=== PATIENT | male | born 1940 | race Caucasian/White ===

== ENCOUNTER → 2016-05-14 | Day surgery (SDC) | payer MEDICARE, OTHER ==
[~2016-05-14] MED LIST: ADVA500A INH; ADVAI500I PO; ALBU8I INH; ATOR10TA PO; ATOR20TA15 PO; CARV6.252 PO; DEXTROSE 5%-LACTATED RING INJ 1,000 ML IV SCH; DO NOT ADM ANY ANTICOAGULANT DRUGS XX PRN; LIDO5DIS35 TOPICAL; OMEP20TA PO; OMEP20TA39 PO; PROPOFOL 200 MG/20 ML AMP IV ONE; SODIUM CHLOR 0.9% 1000 ML INJ 1,000 ML IV SCH; SODIUM CHLORIDE 0.9% FLUSH 5 ML FLUSH IVF PRN; TAMS0.4C4 PO; VENTAER INH; XARE10TA PO; XARE20TA PO
[2016-05-14 08:33] VITALS: BP 180/88; PULSE 83; RESP 15; TEMP 98.2; O2SAT 98
--- NOTE | 2016-05-14 08:44 | PD ---
HPI Chief Complaint: GI Complaint Time Seen by Provider: 08:43 Travel History International Travel<30 days: No Contact w/Intl Traveler<30days: No Traveled to known affect area: No History of Present Illness HPI 75-year-old male came to the emergency room with history of esophageal obstruction. Patient says that he has history of esophageal stricture and has had dilation in the past. His last dilation was in 2013. Patient says he was eating a piece of chicken yesterday that he did not chew very well and since then he has been unable to swallow any fluid since it comes out. He feels like the piece is stuck in the midesophagus. He has been bringing his saliva out from time to time. Vital signs otherwise are stable. Patient is supposed to be on Xarelto for atrial fibrillation but he stopped taking it 1 week ago since he was noticing some blood in his urine. His hematuria has cleared since then. PFSH Past Medical History Narrative Medical List of his past medical history as reviewed from the nursing note. Asthma: Yes Cancer: Yes (PROSTATE) High Cholesterol: Yes Cerebrovascular Accident: Yes (tia 2 years ago) Diminished Hearing: Yes ([place] HEAR[place] AIDS) Genitourinary: Yes (BPH) Hypertension: Yes Respiratory: Yes (asthma) Past Surgical History Abdominal Surgery: Yes (HERNIA REPAIR) Eye Surgery: Yes (LASIK) Genitourinary Surgery: Yes (cryo prostate ) Other Surgery: Yes (ESOPHAGEAL STRICTURES) Social History Alcohol Use: Yes (3-4 oz day ) Tobacco Use: No Substance Use: No Allergies-Medications (Allergen,Severity, Reaction): Coded Allergies: No Known Allergies (Unverified , 05/14/16) Comments No known drug allergies. Reported Meds & Prescriptions Reported Meds & Active Scripts Active Reported Omeprazole 20 Mg Tab 20 Mg PO DAILY Ventolin Hfa 18 GM Inh (Albuterol Sulfate) 90 Mcg/Act Aer 2 Puff INH Q4H PRN Advair Diskus Inh (Fluticasone-Salmeterol Inh) 500-50 Mcg/Blist Aer 1 Puff INH BID Rinse mouth after use. Atorvastatin (Atorvastatin Calcium) 20 Mg Tab 20 Mg PO HS Xarelto (Rivaroxaban) 20 Mg Tab 20 Mg PO DAILY Tamsulosin (Tamsulosin HCl) 0.4 Mg Cap 0.4 Mg PO BID Narrative Medication List of his home medications reviewed from the nursing note. Review of Systems Except as stated in HPI: all other systems reviewed are Neg Physical Exam Narrative GENERAL: Awake, alert, elderly, anxious SKIN: Warm and dry. HEAD: Atraumatic. Normocephalic. EYES: Pupils equal and round. No scleral icterus. No injection or drainage. ENT: No nasal bleeding or discharge. Mucous membranes pink and moist. NECK: Trachea midline. No JVD. CARDIOVASCULAR: Regular rate and rhythm. No murmur appreciated. RESPIRATORY: No accessory muscle use. Bibasilar fine crackles. Breath sounds equal bilaterally. GASTROINTESTINAL: Abdomen soft, non-tender, nondistended. Hepatic and splenic margins not palpable. MUSCULOSKELETAL: No obvious deformities. No clubbing. No cyanosis. 2+ pedal edema bilaterally. NEUROLOGICAL: Awake and alert. No obvious cranial nerve deficits. Motor grossly within normal limits. Normal speech. PSYCHIATRIC: Appropriate mood and affect; insight and judgment normal. Data Data Last Documented VS Vital Signs Date Time Temp Pulse Resp B/P Pulse Ox O2 Delivery O2 Flow Rate FiO2 05/14/16 10:00 96 Room Air 05/14/16 10:00 70 18 180/88 05/14/16 08:33 98.2 Orders Electrocardiogram (05/14/16 ) Basic Metabolic Panel (Bmp) (05/14/16 08:49) B-Type Natriuretic Peptide (05/14/16 08:49) Ckmb (Isoenzyme) Profile (05/14/16 08:49) Complete Blood Count With Diff (05/14/16 08:49) Magnesium (Mg) (05/14/16 08:49) Prothrombin Time / Inr (Pt) (05/14/16 08:49) Act Partial Throm Time (Ptt) (05/14/16 08:49) Troponin I (05/14/16 08:49) Chest, Single Ap (05/14/16 08:49) Ecg Monitoring (05/14/16 08:49) Bilateral Bp Monitoring (05/14/16 08:49) Iv Access Insert/Monitor (05/14/16 08:49) Oximetry (05/14/16 08:49) Oxygen Administration (05/14/16 08:49) Sodium Chloride 0.9% Flush (Ns Flush) (05/14/16 09:00) NPO (05/14/16 08:49) Sodium Chlor 0.9% 1000 Ml Inj (Ns 1000 M (05/14/16 11:32) Admit Order (Ed Use Only) (05/14/16 10:33) Labs Laboratory Tests Test 05/14/16 09:10 White Blood Count 10.9 TH/MM3 Red Blood Count 5.29 MIL/MM3 Hemoglobin 15.9 GM/DL Hematocrit 46.9 % Mean Corpuscular Volume 88.6 FL Mean Corpuscular Hemoglobin 30.0 PG Mean Corpuscular Hemoglobin 33.8 % Concent Red Cell Distribution Width 13.1 % Platelet Count 250 TH/MM3 Mean Platelet Volume 8.4 FL Neutrophils (%) (Auto) 66.4 % Lymphocytes (%) (Auto) 20.8 % Monocytes (%) (Auto) 9.0 % Eosinophils (%) (Auto) 2.9 % Basophils (%) (Auto) 0.9 % Neutrophils # (Auto) 7.3 TH/MM3 Lymphocytes # (Auto) 2.3 TH/MM3 Monocytes # (Auto) 1.0 TH/MM3 Eosinophils # (Auto) 0.3 TH/MM3 Basophils # (Auto) 0.1 TH/MM3 CBC Comment DIFF FINAL Differential Comment Prothrombin Time 10.7 SEC Prothromb Time International 1.0 RATIO Ratio Activated Partial 24.1 SEC Thromboplast Time Sodium Level 140 MEQ/L Potassium Level 4.0 MEQ/L Chloride Level 106 MEQ/L Carbon Dioxide Level 26.7 MEQ/L Anion Gap 7 MEQ/L Blood Urea Nitrogen 13 MG/DL Creatinine 1.17 MG/DL Estimat Glomerular Filtration 61 ML/MIN Rate Random Glucose 121 MG/DL Calcium Level 8.9 MG/DL Magnesium Level 2.3 MG/DL Total Creatine Kinase 84 U/L Troponin I LESS THAN 0.02 NG/ML B-Type Natriuretic Peptide 14 PG/ML MDM Medical Decision Making Medical Screen Exam Complete: Yes Emergency Medical Condition: Yes Medical Record Reviewed: Yes Interpretation(s) Twelve-lead EKG was reviewed by me. Normal sinus rhythm, left axis deviation, peaked T waves. Heart rate of 70 bpm. Differential Diagnosis Esophageal obstruction, CHF Narrative Course 9:55 AM CBC and coags are back and looks to be within normal limit. Awaiting for the chemistry and BNP. Patient is nothing by mouth. I put a call out for the GI specialist and waiting to hear back from them. 10:[address] Adler called back and he is trying to arrange for an endoscopy for this patient. I've ordered a maintenance fluid. Patient has been kept up-to- date on the progress. Procedures EKG Prior to Arrival: No Physician Communication Physician Communication Dr. Adler Diagnosis Primary Impression: Foreign body in esophagus Qualified Code: T18.108A - Foreign body in esophagus, initial encounter Additional Impression: Esophageal stricture Admitting Information Admitting Physician Requests: Observation Devyn Thacker MD May 14, 2016 08:44
[2016-05-14 09:20] LABS: AUTOMATED NEUTROPHIL # 7.3 TH/MM3 (1.8-7.7); BASOPHIL # 0.1 TH/MM3 (0-0.2); BASOPHIL % 0.9 % (0.0-2.0); EOSINOPHIL # 0.3 TH/MM3 (0-0.4); EOSINOPHIL % 2.9 % (0.0-4.0); HEMATOCRIT 46.9 % (39.0-51.0); HEMO FLAGS DIFF FINAL; LYMPH % 20.8 % (9.0-44.0); LYMPHOCYTE # 2.3 TH/MM3 (1.0-4.8); MEAN CELL VOLUME 88.6 FL (80.0-100.0); MEAN CORPUSCULAR HGB CONC 33.8 % (32.0-36.0); NEUT % 66.4 % (16.0-70.0); PLATELET COUNT 250 TH/MM3 (150-450); RED BLOOD COUNT 5.29 MIL/MM3 (4.50-5.90); RED CELL DISTRIBUTION WIDTH 13.1 % (11.6-17.2); WHITE BLOOD COUNT 10.9 TH/MM3 (4.0-11.0)
[2016-05-14 09:31] LABS: APTT (PATIENT) 24.1 SEC (24.3-30.1); PROTHROMBIN TIME - PATIENT 10.7 SEC (9.8-11.6)
--- NOTE | 2016-05-14 09:35 | RADRPT ---
EXAM DATE/TIME: 05/14/2016 09:05 [facility] COMPARISON: No previous studies available for comparison. INDICATIONS : Cough after choking on food. MEDICAL HISTORY : Carcinoma, prostatic. SURGICAL HISTORY : None. ENCOUNTER: Initial ACUITY: 1 day PAIN SCORE: 0/10 LOCATION: Bilateral chest FINDINGS: The cardiac silhouette is enlarged in transverse diameter. The lungs are free of acute parenchymal op acity. No effusions are identified. Osseous structures are intact. CONCLUSION: Cardiomegaly. No acute cardiopulmonary disease. Waqas Todd MD on May 14, 2016 at 9:33 Board Certified Radiologist. This report was verified electronically.
[2016-05-14 09:56] LABS: ANION GAP 7 MEQ/L (5-15); BICARBONATE 26.7 MEQ/L (21.0-32.0); BLOOD UREA NITROGEN 13 MG/DL (7-18); CHLORIDE 106 MEQ/L (98-107); GLOMERULAR FILTRATION RATE 61 ML/MIN (>89); SODIUM (NA) 140 MEQ/L (136-145)
[2016-05-14 09:57] LABS: CREATINE KINASE 84 U/L (39-308); MAGNESIUM 2.3 MG/DL (1.5-2.5)
[2016-05-14 10:00] VITALS: BP 180/88; PULSE 70; RESP 18; O2SAT 96
[2016-05-14 16:00] VITALS: TEMP 98.4
--- NOTE | 2016-05-14 16:04 | PD.PROCEDR ---
GI Procedure PROCEDURE DATE: May 14, 2016 PROCEDURE PERFORMED EGD, full report to be scanned INDICATION FOR PROCEDURE Foreign body PROCEDURE: The procedure, risks and benefits were discussed with Mr. Bob and informed consent was obtained. Anesthesia sedated him with Diprivan. He was placed in the left lateral decubitus position. EGD: The Pentax videoscope was introduced through the oropharynx and advanced to the second portion of the duodenum under direct visualization. Retroflexion was performed in the stomach. FINDINGS: - food bolus impaction in distal esophagus, food bolus was pushed down with endoscope. - distal esophageal stricture noted, significant erosion and inflammation at site of food impaction - normal stomach and duodenum ESTIMATED BLOOD LOSS: minimal COMPLICATIONS: none IMPRESSION: - food bolus impaction - distal esophageal stricture PLAN: - discharge home when criteria met - soft mechanical diet - anti-reflux measures - Protonix 40mg PO daily - follow with GI in clinic, will need esophageal dilation once acute inflammation resolves Hany Hinds MD May 14, 2016 16:04
[2016-05-14 16:15] VITALS: BP 156/88; PULSE 89; RESP 14; O2SAT 94
--- NOTE | 2016-05-14 17:11 | MB ---
cc: LIZETT MAYO DATE OF CONSULTATION 05/14/16 1939 REASON FOR CONSULTATION Foreign body in esophagus. HISTORY OF PRESENT ILLNESS Mr. Bob is a pleasant 75-year-old gentleman with past medical history significant for asthma, prostate cancer, TIA, hypertension, hyperlipidemia and Yu's esophagus who presents today complaining of food stuck in his esophagus since last night. The patient has a history of food bolus impaction in the past due to esophageal stricture. The most recent one was in 2014 that required endoscopy to relieve the obstruction. He is known to Dr. Zamudio who has followed him as an outpatient. He performed barium esophagram which showed narrowing in the distal esophagus, however, the patient at that time was not having any symptoms and declined a possible esophageal dilation. He reports eating chicken last night and after that felt like things got stuck in the distal area of the esophagus having issues handling his secretions and spitting a lot of saliva. He denies any significant shortness of breath. No significant chest pain associated with it. He is on chronic anticoagulation, but has not taken it for the last week. He uses Xarelto. GI has been consulted for evaluation of foreign body in the esophagus. PAST MEDICAL HISTORY 1. Asthma, 2. Prostate cancer, 3. Hypercholesterolemia, 4. Hypertension, 5. History of cerebrovascular accident two years ago. 6. Yu's esophagus. 7. Esophageal stricture. PAST SURGICAL HISTORY 1. Hernia repair 2. LASIK eye surgery 3. Cryo prostate surgery. SOCIAL HISTORY Uses alcohol on occasion, denies tobacco or drug use. ALLERGIES NO KNOWN DRUG ALLERGIES. MEDICATIONS At home 1. Omeprazole 20 mg p.o. daily. 2. Atorvastatin 10 mg p.o. daily 3. Ventolin 4. Advair discus 5. Carvedilol 6.25 p.o. daily. 6. Tamsulosin 0.4 mg p.o. daily 7. Xarelto 10 mg p.o. b.i.d. FAMILY HISTORY EXAMINATION No family history of colon cancer. REVIEW OF SYSTEMS Significant for dysphagia otherwise 14-point medical review of systems negative. PHYSICAL EXAMINATION VITAL SIGNS: Temperature of 98.2, heart rate of 70. Respiratory is 18, blood pressure of 180/88. GENERAL: He is in mild distress lying comfortably in bed. HEENT: Normocephalic, atraumatic. Extraocular movements are intact. Pupils equal, round, reactive to light and accommodation. Moist mucosa. NECK: Supple. No edema. No lymphadenopathy. No thyromegaly. CARDIOVASCULAR: Regular rate and rate, S1, S2 normal, no murmur or gallops. PULMONARY: Clear to auscultation bilaterally. No wheeze or rhonchi. ABDOMEN: Soft, nontender, nondistended. No hepatosplenomegaly appreciated. Bowel sounds are present in all quadrants. EXTREMITIES: No cyanosis or edema. Pulses 2+ bilaterally. SKIN: No rashes or lesions. NEUROLOGIC: He is alert, oriented x3, cranial nerves intact. Strength 5/5 throughout, no focal deficits. LABORATORY DATA White blood cell count 10.9, hemoglobin 15.9, hematocrit of 46.9, platelet count of 250. Sodium 140, potassium four, chloride 106, bicarb 26.7, BUN 13 creatinine 1.17. Coagulation INR of one. PT of 10.7. IMAGING STUDIES He had a chest x-ray which showed cardiomegaly and no acute cardiopulmonary disease. ASSESSMENT Mr. Bob is a pleasant 75-year-old gentleman who presents today with difficulty swallowing after food bolus impaction from eating chicken last night. The patient is known to have distal esophageal stricture, also known to have Yu's esophagus, has required previous endoscopic procedures to remove food boluses. Currently having issues handling secretion. GI consulted for management of food bolus impaction. PLAN 1. Foreign body/food bolus impaction most likely food impacted in distal esophagus at site of the stricture. Continue supportive care. We will plan for upper endoscopy with possible esophageal dilation if needed and foreign body removal this afternoon. Keep the patient n.p.o. for procedure. Hold any anticoagulation or NSAIDs. We would like to thank Dr. Thacker for this consultation and for letting us participate in the care of Mr. Bob. We will follow along with you. Please call us with any question or concerns. MD HARSHAL Reyes/ /4:08 PM /4:54 PM
--- NOTE | 2016-05-14 20:51 | EKG ---
Date Performed: 05/14/2016 Time Performed: 07:57:37 PTAGE: 75 years EKG: Sinus rhythm RIGHT BUNDLE BRANCH BLOCK ABNORMAL ECG INTERPRETATION BASED ON A DEFAULT AGE OF 40 YEARS PREVIOUS TRACING : 12/15/2014 09.01 DOCTOR: Charanjit Callaway Interpretating Date/Time 05/14/2016 20:50:44
== END | disposition home or self-care (01) ==
LOC: NEPE 08:31 → HSDC 10:42
PROVIDERS: ATTEND Student in an Organized Health Care Education/Training Program
DX: T18.108A Unspecified foreign body in esophagus causing other injury, initial encounter (principal); K22.2 Esophageal obstruction; K22.70 Barrett's esophagus without dysplasia; I48.91 Unspecified atrial fibrillation; I10 Essential (primary) hypertension; J45.909 Unspecified asthma, uncomplicated; N40.0 Benign prostatic hyperplasia without lower urinary tract symptoms; E78.00 Pure hypercholesterolemia, unspecified; Z79.01 Long term (current) use of anticoagulants; Z86.73 Personal history of transient ischemic attack (TIA), and cerebral infarction without residual deficits; Z85.46 Personal history of malignant neoplasm of prostate
CPT/HCPCS: 00740; 43247; 71010; 80048; 82550; 83735; 83880; 84484; 85025; 85610; 85730; 93005; 96360; 99284; J3010; J7030

== ENCOUNTER 2016-09-03 16:53 | Emergency (ER) | payer MEDICARE, OTHER ==
[~2016-09-03] VITALS: Ht 172.7 cm; Wt 87.5 kg
[~2016-09-03 16:53] MED LIST changes: -ADVAI500I PO; -ALBU8I INH; -ATOR10TA PO; -CARV6.252 PO; -DEXTROSE 5%-LACTATED RING INJ 1,000 ML IV SCH; -DO NOT ADM ANY ANTICOAGULANT DRUGS XX PRN; -LIDO5DIS35 TOPICAL; -OMEP20TA39 PO; -PROPOFOL 200 MG/20 ML AMP IV ONE; -SODIUM CHLOR 0.9% 1000 ML INJ 1,000 ML IV SCH; -SODIUM CHLORIDE 0.9% FLUSH 5 ML FLUSH IVF PRN; -XARE10TA PO
[2016-09-03 16:56] VITALS: BP 126/80; PULSE 84; RESP 20; TEMP 97.8; O2SAT 94
--- NOTE | 2016-09-03 17:09 | PD ---
Physical Exam Date Seen by Provider: September 03, 2016 Time Seen by Provider: 17:07 Narrative Pt sent by PCP for evaluation of possible kidney stones. Left flank pain and hematuria. Symptoms started this morning. No hx of kidney stones. VSS, awaiting bed placement. Data Data Last Documented VS Vital Signs Date Time Temp Pulse Resp B/P Pulse Ox O2 Delivery O2 Flow Rate FiO2 09/03/16 16:56 97.8 84 20 126/80 94 Room Air MDM Supervised Visit with KRUPA: Jocelyne Frank September 03, 2016 17:09
--- NOTE | 2016-09-03 18:03 | RADRPT ---
EXAM DATE/TIME: 09/03/2016 17:46 [facility] COMPARISON: No previous studies available for comparison. INDICATIONS : Left flank pain, hematuria. ORAL CONTRAST: No oral contrast ingested. RADIATION DOSE: 11.94 CTDIvol (mGy) MEDICAL HISTORY : Cardiovascular disease. Hypertension. Carcinoma, prostate.Asthma. SURGICAL HISTORY : Umbilical hernia repair. ENCOUNTER: Initial ACUITY: 1 day PAIN SCALE: 5/10 LOCATION: Left flank TECHNIQUE: Volumetric scanning of the abdomen and pelvis was performed. Using automated exposure control and ad justment of the mA and/or kV according to patient size, radiation dose was kept as low as reasonably achievable to obtain optimal diagnostic quality images. FINDINGS: Costophrenic angles are clear. No acute findings in the visualized liver, spleen, adrenals, kidneys o r pancreas. There is no hydronephrosis or evidence for obstructive uropathy. There is a questionable tiny 1 mm calculus along the posterior wall of the bladder. No bowel obstruction. No free air or free fluid. No adenopathy. No acute bony abnormality. CONCLUSION: 1. No evidence for obstructive uropathy on the current exam. Questionable tiny calculus in the preparation department supervisor ior bladder. No acute findings within the abdomen and pelvis. Dano Faria MD on September 03, 2016 at 17:58 Board Certified Radiologist. This report was verified electronically.
[2016-09-03] MEDS ORDERED: LIDO5DIS35 TOPICAL (18:18)
--- NOTE | 2016-09-03 18:23 | PD ---
HPI Chief Complaint: Flank/Kidney Pain Time Seen by Provider: 18:10 Travel History International Travel<30 days: No Contact w/Intl Traveler<30days: No Traveled to known affect area: No History of Present Illness HPI 75-year-old male presents for evaluation of left-sided lower back pain. Symptoms started this morning. The pain is a mild aching pain that is worse with movement, he has no pain when he sits still. Denies any radicular symptoms , bowel or bladder incontinence, saddle anesthesia, abdominal pain, dysuria, flank pain. He was seen by his primary care physician Dr. Alexander and he had a urinalysis which revealed trace hematuria. He has no gross hematuria when urinating but because of this he was sent here to rule out kidney stone. No history of kidney stones. He does endorse diarrhea over the past few days which resolved today. No recent antibiotic use. He has no other complaints. PFSH Past Medical History Hx Anticoagulant Therapy: Yes Asthma: Yes Cancer: Yes (PROSTATE) Cardiovascular Problems: Yes High Cholesterol: Yes Cerebrovascular Accident: Yes Diminished Hearing: Yes ([place] HEARING AIDS) Genitourinary: Yes (BPH) Hypertension: Yes Respiratory: Yes (asthma) Past Surgical History Abdominal Surgery: Yes (HERNIA REPAIR) Eye Surgery: Yes (LASIK) Genitourinary Surgery: Yes (cryo prostate ) Other Surgery: Yes (ESOPHAGEAL STRICTURES) Social History Alcohol Use: Yes Tobacco Use: No Substance Use: No Allergies-Medications (Allergen,Severity, Reaction): Coded Allergies: No Known Allergies (Unverified , 09/03/16) Reported Meds & Prescriptions Reported Meds & Active Scripts Active Lidoderm Patch 12 HR (Lidocaine) 5% Patch 1 Patch TOPICAL DAILY PRN Remove patch after 12 hours Reported Omeprazole 20 Mg Tab 20 Mg PO DAILY Ventolin Hfa 18 GM Inh (Albuterol Sulfate) 90 Mcg/Act Aer 2 Puff INH Q4H PRN Advair Diskus Inh (Fluticasone-Salmeterol Inh) 500-50 Mcg/Blist Aer 1 Puff INH BID Rinse mouth after use. Atorvastatin (Atorvastatin Calcium) 20 Mg Tab 20 Mg PO HS Xarelto (Rivaroxaban) 20 Mg Tab 20 Mg PO DAILY Tamsulosin (Tamsulosin HCl) 0.4 Mg Cap 0.4 Mg PO BID Review of Systems Except as stated in HPI: all other systems reviewed are Neg Physical Exam Narrative GENERAL: Well-developed well-nourished male in no acute distress SKIN: Warm and dry. HEAD: Atraumatic. Normocephalic. EYES: Pupils equal and round. No scleral icterus. No injection or drainage. ENT: No nasal bleeding or discharge. Mucous membranes pink and moist. NECK: Trachea midline. No JVD. CARDIOVASCULAR: Regular rate and rhythm. No murmur appreciated. RESPIRATORY: No accessory muscle use. Clear to auscultation. Breath sounds equal bilaterally. GASTROINTESTINAL: Abdomen soft, non-tender, nondistended. Hepatic and splenic margins not palpable. MUSCULOSKELETAL: No obvious deformities. No CVA tenderness. No tenderness to palpation along thoracic or lumbar midline spine. Full range of motion of the lower extremities, normal gait, 5 out of 5 muscle strength in all muscle groups. NEUROLOGICAL: Awake and alert. No obvious cranial nerve deficits. Motor grossly within normal limits. Normal speech. PSYCHIATRIC: Appropriate mood and affect; insight and judgment normal. Data Data Last Documented VS Vital Signs Date Time Temp Pulse Resp B/P Pulse Ox O2 Delivery O2 Flow Rate FiO2 09/03/16 16:56 97.8 84 20 126/[address] Abd/Pel W/O Iv Contrast (09/03/16 ) MDM Medical Decision Making Medical Screen Exam Complete: Yes Emergency Medical Condition: Yes Medical Record Reviewed: Yes Differential Diagnosis Lumbar strain, spasm, compression fracture, renal stone, AAA Narrative Course 75-year-old male with mild left-sided lower back pain that is worse with movement, starting this morning. CT of the abdomen and pelvis was performed revealing no evidence of obstructive uropathy. There is a questionable tiny calculus in the posterior bladder and he appears aware of these findings because he had a urologic procedure and was told the same thing in the past. His pain does not appear to be related to ureteral colic, it appears musculoskeletal in appears mild. He will be discharged with Lidoderm patches. He is instructed to follow-up with his primary care physician for repeat urinalysis in 1-2 weeks to make sure that the microscopic hematuria resolves. Diagnosis Primary Impression: Lumbar strain Qualified Code: S39.012A - Lumbar strain, initial encounter Additional Instructions: Lidoderm Patches as needed. Can take [id number] Tylenol as needed for discomfort. Follow up closely with primary care physician. Return for any emergent medical conditions. Med/Other Pt SpecificInfo: Prescription(s) given Scripts Lidocaine Patch 12 HR (Lidoderm Patch 12 HR)5% Patch1 Patch TOPICAL DAILY PRN ( PAIN) #1 BOX Ref 1 Remove patch after 12 hours Prov:Brooke Bardales DO 09/03/16 Disposition: 01 DISCHARGE HOME Condition: Stable Merlin Tanner September 03, 2016 18:23
== END 2016-09-03 18:34 | disposition home or self-care (01) ==
LOC: NEPD 16:53
DX: S39.012A Strain of muscle, fascia and tendon of lower back, initial encounter (principal); E78.00 Pure hypercholesterolemia, unspecified; I10 Essential (primary) hypertension; Z86.73 Personal history of transient ischemic attack (TIA), and cerebral infarction without residual deficits; Z79.01 Long term (current) use of anticoagulants; R31.29 Other microscopic hematuria; X58.XXXA Exposure to other specified factors, initial encounter
CPT/HCPCS: 74176